=== PATIENT | female | born 1990 | race Caucasian/White ===

== ENCOUNTER 2017-01-11 00:12 | Emergency (ER) | payer MEDICAID ==
[~2017-01-11 00:12] MED LIST: AUGMENTIN 875-11 TAB PO; BIRTH CONTROL PILL; CLARINEX-D 11 BOTTLE PO; COLACE100 M1 PO; ERYTHROMYCIN1 GM RIGHT EYE; FERROUS SULFAT325 MG PO; IBUPROFEN800 M1 PO; KEFLEX500 M4 PO; LEXAPRO; LORTAB 5/5001 EA PO; MOTRIN600 MG; NASONEX17 GM NS; NO MEDS CURRENTLY; NORCO 5/325 TAB1 TAB PO; NORCO 5/3251 TAB PO; PERCOCET 5MG/AP1 TA1 PO; PRENATAL TABLE1 EAC3 PO; PRENATE CHEWABLE1 MG PO; PROMETHAZINE25 MG PO; SLEEPING PILL; TYLENOL325 MG; VALACYCLOVIR500 M1 PO; VICODIN 5/500 T1 TAB PO; ZOFRAN ODT4 MG/UDTAB PO; ZOVIRAX800 M1 PO
[2017-01-11] MEDS ORDERED: EFFEXOR XR75 M1 PO (00:32)
[2017-01-11 01:13] LABS: BASO % 0.1 % (0-2); EOS % 0.5 % (0-7); EOSINOPHIL ABSOLUTE COUNT 0.1 tho/cmm (0.0-0.7); HCT-HEMATOCRIT 36.9 % (34.0-49.0); HGB-HEMOGLOBIN 12.6 gm/dl (12.0-15.5); IMMATURE GRANULOCYTES ABSOLUTE 0.03 tho/cmm (0-0.03); IMMATURE GRANULOCYTES PERCENT 0.3 % (0-0.3); LYMPH % 37.4 % (20-45); LYMPH ABSOLUTE COUNT 4.2 tho/cmm (0.8-4.5); MCH (MEAN CORPUSCULAR HGB) 28.4 pg (28.0-32.0); MCHC MEAN CORPUSCULAR HGB CONC 34.1 % (32.0-36.0); MCV (MEAN CELL VOLUME) 83.1 fl (82.0-96.0); MEAN PLATELET VOLUME 9.9 cmc (9.4-12.4); MONO % 5.9 % (0-12); MONOCYTE ABSOLUTE COUNT 0.7 tho/cmm (0.0-1.2); NEUTROPHIL ABSOLUTE COUNT 6.3 tho/cmm (1.6-8.0); NEUTROPHIL-AUTOMATED 6.3 tho/cmm (1.6-8.0); NEUTROPHILS % 55.8 % (40-80); PLATELET COUNT 233 tho/cmm (150-450); RED BLOOD COUNT 4.44 mil/cmm (4.00-5.20); RED CELL DISTRIBUTION WIDTH 12.6 % (12.4-16.4); WHITE BLOOD COUNT 11.3 tho/cmm (4.0-10.0)
[2017-01-11 01:25] LABS: ANION GAP 13 mmol/L (0-20); BLOOD UREA NITROGEN 10 mg/dl (6-24); CALCIUM 8.4 mg/dl (8.5-10.5); CARBON DIOXIDE-VENOUS 23 mmol/L (22-32); CHLORIDE 107 mmol/l (96-110); CREATININE 0.54 mg/dl (0.50-1.10); GLUCOSE 107 mg/dL (70-110); POTASSIUM 3.6 mmol/L (3.7-5.1); SODIUM 139 mmol/L (135-145); eGFR VALUE FOR BLACK >90 mL/Min
[2017-01-11 01:28] LABS: PREGNANCY-SERUM NEGATIVE (NEGATIVE)
== END 2017-01-11 02:00 ==
LOC: EDMED 00:12
PROVIDERS: Emergency Medicine
DX: T43.215A Adverse effect of selective serotonin and norepinephrine reuptake inhibitors, initial encounter (principal); F32.9 Major depressive disorder, single episode, unspecified; E87.6 Hypokalemia; Z79.899 Other long term (current) drug therapy; Z90.89 Acquired absence of other organs
CPT/HCPCS: J1200; J2405; J7030